=== PATIENT | female | born 1980 | race Two or more races ===

== ENCOUNTER 2021-01-23 17:27 | Emergency (ER) | payer OTHER ==
[~2021-01-23] VITALS: Ht 162.6 cm; Wt 56.7 kg
[2021-01-23] MEDS ORDERED: IBU800 MG (17:56)
[2021-01-23] MEDS ORDERED: ACETAMINOPHEN650 M2 PO (19:32)
[2021-01-23] MEDS ORDERED: KETO10TA2 PO (19:32)
== END 2021-01-23 19:42 | disposition home or self-care (01) ==
LOC: ER 17:27
DX: M62.830 Muscle spasm of back (principal)

== ENCOUNTER 2022-08-28 13:23 | Outpatient (CLI) | payer OTHER ==
[~2022-08-28 13:23] MED LIST: ACETAMINOPHEN650 M2 PO; IBU800 MG; KETO10TA2 PO
== END 2022-08-28 14:44 | disposition home or self-care (01) ==
LOC: NST 13:23
PROVIDERS: ATTEND Obstetrics & Gynecology Gynecology
DX: Z34.83 Encounter for supervision of other normal pregnancy, third trimester (principal)

== ENCOUNTER 2024-04-03 05:30 | Day surgery (SDC) | payer OTHER ==
[2024-03-27 10:52] LABS: PH,URINE 6.5 (5.0-8.0); URINE APPEARANCE Clear; URINE BILIRRUBIN Negative (NEGATIVE); URINE BLOOD Negative; URINE COLOR Yellow; URINE GLUCOSE Negative (NEGATIVE); URINE KETONE Negative (NEGATIVE); URINE LEUKOCYTE Small; URINE NITRATE Negative; URINE PROTEIN Negative (NEGATIVE); URINE UROBILINOGEN 0.2 E.U./dl
[2024-03-27 10:53] LABS: URINE BACTERIA 70.5 uL (0.0-1933); URINE EPITHELIAL CELLS 8.8 uL (0.0-38.8); URINE RBC 11.7 uL (0.0-20.8); URINE WBC 7.8 uL (0.0-23.2)
[2024-03-27 11:00] LABS: HEMATOCRIT 40.8 % (36.0-45.00); HEMOGLOBIN 13.8 g/dL (12.0-15.00); MEAN CELL VOLUME 89.5 fL (80.00-100.00); MEAN CORPUSCULAR HEMOGLOBIN 30.2 pg (27.00-32.0); MEAN CORPUSCULAR HGB CONC 33.7 g/dl (32.0-36.0); PLATELET COUNT 289 K/uL (150-450); RED BLOOD COUNT 4.56 M/uL (4.00-6.00); RED CELL DISTRIBUTION WIDTH 13.9 % (11.5-14.5)
[2024-03-27 11:28] LABS: INR 1.04; PARTIAL THROMBOPLASTIN TIME 34.4 SECONDS (22.0-34.0); PROTHROMBIN TIME 11.3 SECONDS (9.0-11.5)
[2024-03-27 11:36] LABS: ALBUMIN 4.3 gm/dL (3.4-5.0); BILIRUBIN TOTAL 0.85 mg/dL (0.3-1.2); CALCIUM 9.2 mg/dL (8.5-10.1); CREATININE SERUM 0.68 mg/dL (0.55-1.02); GFR 93.99; GLOBULINA 3.5 G/DL (2.4-3.5); POTASSIUM 3.79 mEq/L (3.5-5.1); TOTAL PROTEIN 7.8 gm/dL (6.4-8.2)
[~2024-04-03 05:30] MED LIST changes: +LEVOFLOXACIN500 MG; +PREDNISONE 20 MG; +PROAIR RESPICL90 MCG
[2024-04-03] MEDS ORDERED: POVIDONE-IODINE 118 ML BOTT TOP ONE (07:00)
[2024-04-03] MEDS ORDERED: DIBUCAINE 30 GM TUBE ONE (07:00)
[2024-04-03] MEDS ORDERED: HEMOSTATIC MATRIX 1 KIT KIT TOP ONE (07:01)
[2024-04-03] MEDS ORDERED: METRONIDAZOLE/SODIUM CHLORIDE 500 MG/100 ML PIGGYBACK IV ONE (07:13)
[2024-04-03] MEDS ORDERED: BUPIVACAINE LIPOSOME/PF 266 MG/20 ML VIAL IJ ONE (07:23)
[2024-04-03] MEDS ORDERED: TRIAMCINOLONE ACETONIDE 40 MG/ML VIAL ONE (07:52)
== END 2024-04-03 13:35 | disposition home or self-care (01) ==
LOC: CIR.AMB 05:30
PROVIDERS: ATTEND Colon & Rectal Surgery
DX: K64.1 Second degree hemorrhoids (principal); K62.1 Rectal polyp; K62.2 Anal prolapse

== ENCOUNTER 2024-09-23 07:39 | Day surgery (SDC) | payer OTHER ==
[2024-09-23] MEDS ORDERED: MIDAZOLAM HCL 2 MG/2 ML VIAL IV ONE (11:45)
[2024-09-23] MEDS ORDERED: fentaNYL CITRATE 50 MCG/ML AMPUL IV PUSH ONE (11:45)
[2024-09-23] MEDS ORDERED: ONDANSETRON HCL 2 MG/ML VIAL IV ONE (11:45)
[2024-09-23] MEDS ORDERED: DIPHENHYDRAMINE HCL 50 MG/ML VIAL 1ML IV ONE (11:45)
== END 2024-09-23 13:00 | disposition home or self-care (01) ==
LOC: AMB-ENDOS 07:39
PROVIDERS: ATTEND Colon & Rectal Surgery
DX: K63.5 Polyp of colon (principal); Z12.11 Encounter for screening for malignant neoplasm of colon; Z88.1 Allergy status to other antibiotic agents